=== PATIENT | female | born 1950 | race Caucasian/White ===

== ENCOUNTER 2022-07-05 14:58 | Emergency (ER) | payer BC ==
[~2022-07-05] VITALS: Ht 172.7 cm; Wt 86.2 kg
--- NOTE | 2022-07-05 15:18 | NUR ---
WORSENING SORETHROAT X 6 DAYS
--- NOTE | 2022-07-05 15:30 | NUR ---
AT BEDSIDE FOR EVAL
[2022-07-05] MEDS ORDERED: AZIT500T PO (16:49)
[2022-07-05 17:48] VITALS: BP 123/61
--- NOTE | 2022-07-05 17:48 | NUR ---
Patient discharged to home in stable condition. Written and verbal after care instructions given. Patient verbalizes understanding of instruction.
== END 2022-07-05 17:48 | disposition home or self-care (01) ==
LOC: ER 15:02
DX: J20.9 Acute bronchitis, unspecified (principal); Z79.899 Other long term (current) drug therapy; Z88.0 Allergy status to penicillin; Z88.2 Allergy status to sulfonamides